=== PATIENT | male | born 1960 | race Caucasian/White ===

== ENCOUNTER 2021-10-24 08:09 | Outpatient (CLI) | payer OTHER, SELFPAY ==
--- NOTE | 2021-10-24 08:32 | EST_ITS ---
Patient Info Name: Eddie Olmos Age: 61 years : 1960 Gender: Male Ht: 74 in Wt: 197 lbs BSA: 2.17 m2 HR: 70 bpm BP: 130 / 90 mmHg Technical Quality: Good Exam Date: 10/24/2021 9:17 AM Exam Location: [facility] Patient Status: Outpatient Admit Date: 10/24/2021 Staff Ordering Physician: Eric Darden DO Binder Sorter: Giovanna Giron RDCS Attending Provider: Eric Darden DO Referring Physician: Adelso ZULUAGA; Exercise Technologist: Ariana Shetty CT Exercise Physician: Eric Darden DO Exam Type: CA stress echo Study Info Indications - chest pain Treadmill exercise stress echocardiogram is performed. Summary 1. 1. Negative Lucho exercise stress test for ischemic ST changes by ECG criteria. 2. 2. Good functional capacity, achieving 8.9 METs of workload. 3. 3. Appropriate HR response to exercise. 4. 4. Appropriate HR recovery at 1 minute post exercise. 5. 5. Negative stress echocardiogram for ischemia by wall motion analysis. 6. 6. Patient informed of the above results. Stress Echo Findings Left Ventricle Appropriate increase in LV endocardial thickening with systole. Appropriate augmentation of contractility with systole. No wall motion abnormality. Left Ventricle Normal LV systolic function, no wall motion abnormality. Protocol: Lucho Stress ECG Details Stage: REST Duration (min): 1 min : 11 sec Speed (mph): 0.0 Grade (%): 0 HR (bpm): 73 SBP (mmHg): 130 DBP (mmHg): 90 METS: --- Stage: REST Duration (min): 1 min : 26 sec Speed (mph): 0.0 Grade (%): 0 HR (bpm): 73 SBP (mmHg): 130 DBP (mmHg): 90 METS: --- Stage: REST Duration (min): 1 min : 41 sec Speed (mph): 0.0 Grade (%): 0 HR (bpm): 69 SBP (mmHg): 130 DBP (mmHg): 90 METS: --- Stage: REST Duration (min): 20 min : 33 sec Speed (mph): 0.0 Grade (%): 0 HR (bpm): 74 SBP (mmHg): 130 DBP (mmHg): 90 METS: --- Stage: STAGE 1 Duration (min): 1 min : 0 sec Speed (mph): 1.7 Grade (%): 10 HR (bpm): 98 SBP (mmHg): 130 DBP (mmHg): 90 METS: --- Stage: STAGE 1 Duration (min): 2 min : 0 sec Speed (mph): 1.7 Grade (%): 10 HR (bpm): 98 SBP (mmHg): 130 DBP (mmHg): 90 METS: --- Stage: STAGE 1 Duration (min): 3 min : 0 sec Speed (mph): 1.7 Grade (%): 10 HR (bpm): 101 SBP (mmHg): 193 DBP (mmHg): 110 METS: --- Stage: STAGE 2 Duration (min): 1 min : 0 sec Speed (mph): 2.5 Grade (%): 12 HR (bpm): 111 SBP (mmHg): 190 DBP (mmHg): 105 METS: --- Stage: STAGE 2 Duration (min): 2 min : 0 sec Speed (mph): 2.5 Grade (%): 12 HR (bpm): 115 SBP (mmHg): 187 DBP (mmHg): 103 METS: --- Stage: STAGE 2 Duration (min): 3 min : 0 sec Speed (mph): 2.5 Grade (%): 12 HR (bpm): 122 SBP (mmHg): 187 DBP (mmHg): 103 METS: --- Stage: STAGE 3 Duration (min): 1 min : 0 se
== END 2021-10-24 08:10 | disposition home or self-care (01) ==
LOC: ANHCARD 08:11
PROVIDERS: PCP Internal Medicine; Visit Provider Internal Medicine Cardiovascular Disease
DX: R07.9 Chest pain, unspecified (principal)
CPT/HCPCS: 93351